=== PATIENT | male | born 1945 | race Caucasian/White ===

== ENCOUNTER 2022-05-11 21:37 | Emergency (ER) | payer BC ==
[~2022-05-11] VITALS: Ht 185.4 cm; Wt 143.0 kg
[2022-05-11] MEDS ORDERED: ZESTRIL10 MG PO (22:00)
[2022-05-11] MEDS ORDERED: HYDROCHLOROTHIA25 MG PO (22:01)
[2022-05-11] MEDS ORDERED: ATORVASTATIN CA20 MG PO (22:01)
[2022-05-11] MEDS ORDERED: NEURONTIN100 MG PO (22:02)
== END 2022-05-11 22:27 | disposition home or self-care (01) ==
LOC: ED 21:37
DX: S80.812A Abrasion, left lower leg, initial encounter (principal); M54.50 Low back pain, unspecified; Z23 Encounter for immunization; X58.XXXA Exposure to other specified factors, initial encounter; Z88.0 Allergy status to penicillin; Z88.1 Allergy status to other antibiotic agents; Z79.899 Other long term (current) drug therapy
CPT/HCPCS: 90471; 90715; 99283-25